=== PATIENT | female | born 1975 | race Caucasian/White ===

== ENCOUNTER 2016-08-13 11:23 | Emergency (ER) | payer BC, MEDICAID ==
--- NOTE | 2016-08-13 11:38 | ED.PDOC ---
History of Present Illness - General Chief Complaint: Cardiovascular Problem Stated Complaint: palpitations Time Seen by Provider: 08/13/16 11:25 Source: patient, RN notes reviewed, Vital Signs reviewed Exam Limitations: no limitations Additional Information: Pt's primary complaint is 3 days of left chest wall pain. She points just inferior-lateral to her left breast along chest wall as location of pain. Pain worse with deep breaths and touching. Patient denies a history of trauma to this area and she denies any previous issues with this. She states she has been trying ibuprofen 200-800 mg once or twice a day with no significant improvement in symptoms. She is in no distress at rest and she tolerates exam. Patient also reports intermittent light headedness as well as occasional palpitations. She denies family history of heart disease but she does have a significant history of tobacco smoking 1/2-1 ppd for over 25 years. - History of Present Illness Timing/Duration: other - about 3 days Severity: mild Location: other - left chest wall around Rib spaces 8-10 Activities at Onset: none Prior Chest Pain/Cardiac Workup: no prior chest pain Improving Factors: rest Worsening Factors: movement - and deep breaths Associated Symptoms: other - pain with palpation and deep breaths; occasional palpitations and light headedness. Allergies/Adverse Reactions: Allergies NO KNOWN ALLERGY Allergy (Verified 08/13/16 11:33) Home Medications: Ambulatory Orders Acetaminophen W/ Codeine [Tylenol W/ CODEINE #3] 1 ea PO Q6HR PRN #12 08/13/16 Review of Systems - Review of Systems Constitutional: States: weakness EENTM: States: no symptoms reported Respiratory: States: no symptoms reported Cardiology: States: see HPI, chest pain Gastrointestinal/Abdominal: States: no symptoms reported Genitourinary: States: no symptoms reported Musculoskeletal: States: see HPI - chest wall tenderness Skin: States: no symptoms reported Neurological: States: no symptoms reported Endocrine: States: no symptoms reported Hematologic/Lymphatic: States: no symptoms reported Family Medical History - Family History Mother Family History: No Known Living Status: Still Living Physical Exam - Physical Exam General Appearance: Alert, Comfortable, No apparent distress Eyes, Ears, Nose, Throat Exam: PERRL/EOMI, normal ENT inspection, TMs normal, pharynx normal Neck: non-tender, full range of motion, supple, normal inspection Respiratory: chest non-tender, lungs clear, normal breath sounds, no respiratory distress, no accessory muscle use Cardiovascular/Chest: normal peripheral pulses, regular rate, rhythm, no edema, no murmur, other - tender to palpation inferior to left breast around 7th to 9th rib space Gastrointestinal/Abdominal: non tender, soft Extremity: normal range of motion, non-tender, normal inspection 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 Waiting on urine studies. Pt reports intermittent palpitations - no dysrhythmia noted on telemetry or EKG. Toradol 60 mg IM x 1 given for left chest wall pain. 08/13/16 15:17 Labs reviewed with patient. History and exam consistent with costochondritis. Labs and testing not suggestive of PE, Cardiac Ischemia, significant chest pathology. Ok to discharge to home with recommendation for NSAID for inflammation and T3 as needed for severe pain. Follow-up with PCM if symptoms persist in a few days or return to ER sooner if condition worsens. - Results/Orders Results/Orders: 08/13/16 11:30 EKG STAT Laboratory Results - last 24 hr 08/13/16 08/13/16 08/13/16 11:28 11:34 11:41 WBC RBC Hgb Hct MCV MCH MCHC RDW Plt Count MPV Absolute Neuts (auto) Absolute Lymphs (auto) Absolute Monos (auto) Absolute Eos (auto) Absolute Basos (auto) Neutrophils % Lymphocytes % Monocytes % Eosinophils % Basophils % D-Dimer, Quantitative Sodium 139 Potassium 3.4 L Chloride 107 Carbon Dioxide 25 Anion Gap 10.4 L BUN 10 Creatinine 0.69 BUN/Creatinine Ratio 14.5 Random Glucose 93 Serum Osmolality 276.3 Calcium 9.3 Phosphorus 2.5 Magnesium 1.9 Total Bilirubin 0.3 AST 17 ALT 11 Alkaline Phosphatase 44 Creatine Kinase 106 CK-MB (CK-2) 2.6 CK-MB (CK-2) % Not Reportable Troponin I < 0.02 Serum Total Protein 6.4 Albumin 4.1 Globulin 2.3 Albumin/Globulin Ratio 1.8 TSH 0.75 Urine Color Urine Appearance Urine pH Ur Specific Barnard Urine Protein Urine Glucose (UA) Urine Ketones Urine Blood Urine Nitrite Urine Bilirubin Urine Urobilinogen Ur Leukocyte Esterase Urine RBC Urine WBC Ur Epithelial Cells Urine Bacteria Urine HCG, Qual Negative Urine Opiates Screen Negative Urine Barbiturates Negative Ur Phencyclidine Scrn Negative U Amphetamin/Meth Scrn Negative U Benzodiazepines Scrn Negative U Cocaine Metab Screen Negative U Cannabinoids Screen Negative 08/13/16 08/13/16 08/13/16 11:41 11:49 14:20 WBC 4.7 L RBC 4.08 L Hgb 12.3 Hct 37.0 MCV 90.7 MCH 30.1 MCHC 33.4 RDW 14.2 Plt Count 252 MPV 8.5 Absolute Neuts (auto) 2.50 Absolute Lymphs (auto) 1.80 Absolute Monos (auto) 0.30 Absolute Eos (auto) 0.10 Absolute Basos (auto) 0.00 Neutrophils % 53.5 Lymphocytes % 37.9 Monocytes % 6.6 Eosinophils % 1.4 Basophils % 0.6 D-Dimer, Quantitative < 230 Sodium Potassium Chloride Carbon Dioxide Anion Gap BUN Creatinine BUN/Creatinine Ratio Random Glucose Serum Osmolality Calcium Phosphorus Magnesium Total Bilirubin AST ALT Alkaline Phosphatase Creatine Kinase CK-MB (CK-2) CK-MB (CK-2) % Troponin I Serum Total Protein Albumin Globulin Albumin/Globulin Ratio TSH Urine Color Yellow Urine Appearance Clear Urine pH 6.0 Ur Specific Barnard <= 1.005 Urine Protein Negative Urine Glucose (UA) Negative Urine Ketones Negative Urine Blood Negative Urine Nitrite Negative Urine Bilirubin Negative Urine Urobilinogen 0.2 Ur Leukocyte Esterase Negative Urine RBC 0 Urine WBC 0 Ur Epithelial Cells 1-3 Urine Bacteria 0 Urine HCG, Qual Urine Opiates Screen Urine Barbiturates Ur Phencyclidine Scrn U Amphetamin/Meth Scrn U Benzodiazepines Scrn U Cocaine Metab Screen U Cannabinoids Screen - EKG/XRAY/CT EKG: Sinus - 68 bpm XRAY: chest - normal Departure - Departure Clinical Impression: Costochondral chest pain Time of Disposition: 15:15 Disposition: Discharge to Home or Self Care Condition: Good Instructions: DI for Costochondritis Referrals: Alberto Olmedo MD [Active Staff] - 1-5 Days Prescriptions: Acetaminophen W/ Codeine [Tylenol W/ CODEINE #3] 1 ea PO Q6HR PRN #12 PRN Reason: Pain Home Medications: Ambulatory Orders Acetaminophen W/ Codeine [Tylenol W/ CODEINE #3] 1 ea PO Q6HR PRN #12 08/13/16 Additional Instructions: Stay well hydrated. Continue ibuprofen (Advil) 200 mg tablets (1 to 4 tablets) three times a day as needed for pain - recommend scheduled 9am, 2pm, 9pm for the next 2 to 3 days. Tylenol with codeine as needed for severe pain. Follow-up with Primary Care Provider if symptoms persist in 2 to 4 days or return to ER if condition worsens and unable to function.
[2016-08-13 11:51] VITALS: TEMP 98.2
--- NOTE | 2016-08-13 12:05 | RAD ---
PROCEDURE: Chest,2 Views CLINICAL HISTORY: palpitations INDICATION: Same as above COMPARISON: None TECHNIQUE: PA and and lateral chest radiographs were obtained. FINDINGS: The lung brown are well inflated. There are no discrete airspace infiltrates, pneumothoraces or pleural effusions. The pulmonary vascularity is normal The cardiomediastinal silhouette is unremarkable for patient's age and sex. IMPRESSION: There is no acute pleural-parenchymal process seen in the imaged lung brown. Place of interpretation: [facility]. Electronically signed by: Jose Harden MD 08/13/2016 12:05 PM CDT
[2016-08-13] MEDS ORDERED: KETOROLAC TROMETHAMINE INJ 60 MG/2 ML VIAL IM ONE (12:09)
[2016-08-13] MEDS ORDERED: ACETAMINOPHEN W/COD #3 TAB (ER Disp) PO PRN (15:10)
[2016-08-13] MEDS ORDERED: ACETAMINOPHEN W/COD #3 TAB 1 EA TAB PO ONE (15:11)
[2016-08-13 15:37] VITALS: BP 96/54; O2SAT 100
== END 2016-08-13 13:32 | disposition home or self-care (01) ==
LOC: ER 11:23
DX: R07.89 Other chest pain (principal); Z87.891 Personal history of nicotine dependence

== ENCOUNTER → 2016-08-16 | Outpatient (CLI) | payer BC | LOC: RESP 14:05 | PROVIDERS: ATTEND Nurse Practitioner Family | DX: R00.2 Palpitations (principal) ==